=== PATIENT | female | born 1990 | race Caucasian/White ===

== ENCOUNTER 2021-02-24 08:36 | Outpatient (CLI) | payer BC | END 2021-02-24 08:37 | disposition home or self-care (01) | LOC: DTY/OP 08:36 | PROVIDERS: ATTEND Surgery | DX: Z01.818 Encounter for other preprocedural examination (principal); I10 Essential (primary) hypertension | CPT/HCPCS: 97802 ==

== ENCOUNTER 2021-07-24 16:17 | Outpatient (CLI) | payer SELFPAY ==
[2021-07-24 18:52] LABS: BHCG - Serum Negative (NEGATIVE); Pregs Control Background? CLEAR/WHITE (CLR/WHITE); Pregs Control Bar Appear? YES (CONTROL BAR)
[2021-07-24 18:57] LABS: Albumin 4.6 g/dL (3.5-5.0)
[2021-07-24 21:02] LABS: Hemoglobin A1c 5.2 % (4.0-6.0)
[2021-07-25 07:59] LABS: SARS-CoV-2 PCR by NAA Not Detected (NotDetected)
== END 2021-07-24 16:18 | disposition home or self-care (01) ==
LOC: LABBT 16:17
PROVIDERS: ATTEND Surgery
DX: Z01.818 Encounter for other preprocedural examination (principal); Z20.822 Contact with and (suspected) exposure to COVID-19
CPT/HCPCS: 82040; 82565; 83036; 84703; 85014; 93005; 93010; U0003; U0005

== ENCOUNTER 2021-07-24 16:30 | Inpatient (IN) | payer OTHER ==
[2021-07-28] MEDS ORDERED: Scopolamine 1.5 mg/72 hour Patch ONE (06:30)
[2021-07-28] MEDS ORDERED: cefOXitin Sodium/Dextrose 2 GM/50 ML BAG ONE (06:30)
[2021-07-28] MEDS ORDERED: Enoxaparin Sodium 40 MG/0.4 ML SYRINGE ONE (06:31)
[2021-07-28] MEDS ORDERED: Promethazine HCl 25 MG/ML VIAL ONE (06:43)
[2021-07-28] MEDS ORDERED: Phenylephrine 10 MG/ML VIAL ONE (06:43)
[2021-07-28] MEDS ORDERED: Fentanyl 250 MCG/5 ML VIAL ONE (06:43)
[2021-07-28] MEDS ORDERED: Midazolam HCl 2 mg/2 ml Vial ONE ×2 (06:43→07:00)
[2021-07-28] MEDS ORDERED: SUGAMMADEX SODIUM 200 MG/2 ML VIAL ONE (06:43)
[2021-07-28] MEDS ORDERED: Bupivacaine 0.25% 10 ML VIAL ONE (06:55)
[2021-07-28] MEDS ORDERED: Lidocaine 1% w/Epinephrine 1:100K 20 ML VIAL ONE (06:55)
[2021-07-28] MEDS ORDERED: Labetalol HCl 100 MG/20 ML VIAL ONE (07:24)
[2021-07-28] MEDS ORDERED: PROPOFOL 200 MG/20 ML VIAL ONE (07:24)
[2021-07-28] MEDS ORDERED: Esmolol 100 MG/10 ML VIAL ONE (07:24)
[2021-07-28] MEDS ORDERED: Lidocaine 1% PF 5 ML VIAL ONE (07:24)
[2021-07-28] MEDS ORDERED: Rocuronium Bromide 10 MG/ML (10ML VIAL) ONE (07:24)
[2021-07-28] MEDS ORDERED: Dexamethasone 20 MG/5 ML VIAL ONE (07:24)
[2021-07-28] MEDS ORDERED: Ondansetron PF 4 MG/2 ML Vial ONE (07:24)
[2021-07-28] MEDS ORDERED: Glycopyrrolate 0.2 MG/ML 5 ML SYRINGE ONE (07:24)
[2021-07-28 07:37] LABS: Anion Gap 16 mmol/L (10-20); BUN (Urea Nitrogen) 10 mg/dL (7.0-18.7); Calc. Creatinine Clearance 207 mL/min (70-130); Calcium 9.8 mg/dL (7.8-10.44); Carbon Dioxide 22 mmol/L (22-29); Chloride 103 mmol/L (98-107); Glucose 99 mg/dL (70-105); Potassium 3.8 mmol/L (3.5-5.1); Sodium 137 mmol/L (136-145)
[2021-07-28] MEDS ORDERED: Dextrose 5% in Water 1,000 ML IV PRN (09:14)
[2021-07-28] MEDS ORDERED: Promethazine HCl 25 MG/ML VIAL IM PRN (09:14)
[2021-07-28] MEDS ORDERED: Ondansetron PF 4 MG/2 ML Vial IVP PRN (09:14)
[2021-07-28] MEDS ORDERED: Morphine 4 MG/ML VIAL SLOW IVP PRN (09:14)
[2021-07-28] MEDS ORDERED: Dextrose 50% Abboject 50 ML SYRINGE SLOW IVP PRN (09:14)
[2021-07-28] MEDS ORDERED: diphenhydrAMINE 50 MG/ML VIAL IVP PRN (09:14)
[2021-07-28] MEDS ORDERED: Fentanyl 100 MCG/2 ML VIAL ONE (09:30)
[2021-07-28] MEDS ORDERED: D5 1/2 NS w/20 mEq KCL 1,000 ML ONE (10:15)
[2021-07-28] MEDS: Ketorolac Tromethamine 30 MG/ML VIAL IVP SCH ×2 (12:11→18:32)
[2021-07-28] MEDS: D5 1/2 NS w/20 mEq KCL 1,000 ML IV SCH ×2 (12:14→18:34)
[2021-07-28] MEDS: Hydrocodone-Acetamin 15 ML UDCUP PO PRN ×2 (15:32→21:17)
[2021-07-28 17:34] VITALS: BMI 39.4
[2021-07-29] MEDS: Ketorolac Tromethamine 30 MG/ML VIAL IVP SCH ×3 (00:10→11:49)
[2021-07-29] MEDS: D5 1/2 NS w/20 mEq KCL 1,000 ML IV SCH ×2 (00:13→08:19)
[2021-07-29] MEDS: Hydrocodone-Acetamin 15 ML UDCUP PO PRN ×3 (05:33→14:10)
[2021-07-29] MEDS ORDERED: Enoxaparin Sodium 40 MG/0.4 ML SYRINGE SC SCH (06:00)
[2021-07-29 06:09] LABS: #Lymphocytes 1.5 thou/uL (1.20-3.40); #Neutrophils 9.6 thou/uL (1.40-6.50); %Basophils 0.1 % (0.0-1.0); %Eosinophils 0.2 % (0.0-10.0); %Lymphocytes 12.3 % (21.0-51.0); %Neutrophils 79.5 % (42.0-75.0); Hemoglobin 11.4 g/dL (12.0-16.0); Mean Corpuscular HGB CONC 33.6 g/dL (32.0-36.0); Mean Corpuscular Hemoglobin 29.2 pg (27.0-31.0); Mean Corpuscular Volume 86.9 fL (78.0-98.0); Mean Platelet Volume 7.4 fL (7.4-10.4); Platelet Count 298 thou/uL (130-400); RBC Distribution Width 12.4 % (11.5-14.5); Red Blood Cell (RBC) Count 3.88 mill/uL (4.20-5.40); White Blood Cell (WBC) Count 12.1 thou/uL (4.8-10.8)
[2021-07-29 06:34] LABS: Anion Gap 12 mmol/L (10-20); BUN (Urea Nitrogen) 5 mg/dL (7.0-18.7); Calc. Creatinine Clearance 207 mL/min (70-130); Calcium 9.2 mg/dL (7.8-10.44); Carbon Dioxide 20 mmol/L (22-29); Chloride 109 mmol/L (98-107); Glucose 118 mg/dL (70-105); Sodium 137 mmol/L (136-145)
[2021-07-29] MEDS ORDERED: Pantoprazole 40 MG VIAL IVP SCH (09:00)
[2021-07-29 11:07] VITALS: BP 155/96; TEMP 97.8
[2021-07-30] MEDS ORDERED: Enoxaparin Sodium 40 MG/0.4 ML SYRINGE SC SCH (09:00)
== END 2021-07-29 15:24 | disposition home or self-care (01) | DRG 621 ==
LOC: SURG A 07-28 06:07 → EDSTATUS 07-28 16:30
PROVIDERS: ADMIT Surgery; ATTEND Surgery
PROC: 0DB64Z3 Excision of Stomach, Percutaneous Endoscopic Approach, Vertical (ICD-10-PCS; principal; 2021-07-28)
PROC: 8E0W4CZ Robotic Assisted Procedure of Trunk Region, Percutaneous Endoscopic Approach (ICD-10-PCS; 2021-07-28)
DX: E66.01 Morbid (severe) obesity due to excess calories (principal); I10 Essential (primary) hypertension; F17.210 Nicotine dependence, cigarettes, uncomplicated; Z68.39 Body mass index [BMI] 39.0-39.9, adult; Z91.013 Allergy to seafood; Z79.899 Other long term (current) drug therapy
CPT/HCPCS: 36415; 80048; 85025; 88307; 94760; C9113; J0694; J1100; J1650; J1885; J2250; J2370; J2405; J2550; J2704; J3010; J3480; S0020